=== PATIENT | male | born 1995 | race Caucasian/White ===

== ENCOUNTER 2018-05-21 12:54 | Emergency (ER) | payer OTHER ==
[2018-05-21] MEDS ORDERED: ALBUTEROL NEB 2.5 MG/3 ML INH STA (13:39)
[2018-05-21] MEDS ORDERED: DEXAMETHASONE 10 MG/ML VIAL PO STA (13:39)
--- NOTE | 2018-05-21 14:00 | ED Physician Documentation ---
PD HPI URI - Stated complaint Stated Complaint: COUGHING UP BLOOD,SINUS PRESSURE - Chief complaint Chief Complaint: Resp - History obtained from History obtained from: Patient - Additional information Additional information: 22-year-old male presents the emergency department with 1 week of nasal congestion, cough and wheezing which has progressively worsened. The patient denies dyspnea on exertion or chest pain. The patient denies fevers or chills. The patient does report coughing today with productive sputum and blood tinged with the sputum. The patient denies any recent travel outside the [place]. The patient denies smoking. Review of Systems Constitutional: reports: Fatigue. denies: Fever, Chills Eyes: denies: Discharge Ears: denies: Ear pain Nose: reports: Rhinorrhea / runny nose, Congestion Throat: denies: Sore throat Cardiac: denies: Chest pain / pressure, Palpitations Respiratory: reports: Cough, Hemoptysis GI: denies: Abdominal Pain : denies: Dysuria Skin: denies: Rash Musculoskeletal: denies: Neck pain Neurologic: denies: Generalized weakness Immunocompromised: denies: Chemotherapy PD PAST MEDICAL HISTORY - Past Medical History Past Medical History: No - Past Surgical History Past Surgical History: No - Present Medications Home Medications: Ambulatory Orders Medication Instructions Recorded Confirmed Albuterol Sulf [Ventolin Hfa 1 - 2 puffs INH Q4HR PRN #1 inhaler 05/21/18 Inhaler] Dm/Acetaminophen/Doxylamine [Vicks 05/21/18 Nyquil Cold-Flu Liquid] - Allergies Allergies/Adverse Reactions: Allergies Allergy/AdvReac Type Severity Reaction Status Date / Time No Known Drug Allergies Allergy Verified 05/21/18 13:11 - Social History Does the pt smoke?: No Smoking Status: Never smoker Does the pt drink ETOH?: No Does the pt have substance abuse?: No - Immunizations Immunizations are current?: Yes - POLST Patient has POLST: No PD ED PE NORMAL - General General: Alert and oriented X 3, No acute distress - HEENT HEENT: Atraumatic, PERRL, EOMI, Ears normal - Neck Neck: No JVD - Cardiac Cardiac: RRR, Strong equal pulses - Respiratory Respiratory: No respiratory distress, Clear bilaterally, Other (Bilateral wheezing) - Abdomen Abdomen: Soft, Non tender - Derm Derm: Normal color - Extremities Extremities: No deformity - Neuro Neuro: Alert and oriented X 3, aws consultant 2-12 intact, Normal speech - Psych Psych: Normal mood Results - Vitals Vitals: Vital Signs - 24 hr 05/21/18 05/21/18 13:07 13:54 Temperature 36.2 C L Heart Rate 65 70 Respiratory 16 14 Rate Blood Pressure 138/76 H O2 Saturation 98 Oxygen O2 Source Room air PD MEDICAL DECISION MAKING - ED course ED course: On reevaluation the patient is resting comfortably and appears to be in no acute distress. The patient's chest x-ray shows no evidence of pneumonia. The patient's symptoms seem to represent a viral process and the hemoptysis is related to the acute viral bronchitis. The patient will be discharged home with a prescription for an albuterol inhaler and was given a dose of Decadron in the emergency department. Presently, the patient appears appropriate for discharge and ongoing outpatient management. I discussed warning signs and recommended returning to the emergency department for any worsening or any concerns. Departure - Departure Disposition: 01 Home, Self Care Clinical Impression: Viral bronchitis Condition: Good Instructions: ED Upper Resp Infec No Abx Tx Ch, ED Bronchitis Asthmatic Ch Follow-Up: MARIA EUGENIA Townsend [Provider Group] - Within 1 week Prescriptions: Albuterol Sulf [Ventolin Hfa Inhaler] 1 - 2 puffs INH Q4HR PRN #1 inhaler PRN Reason: Shortness Of Air/Wheezing Comments: Please return to the emergency department for worsening symptoms or any concerns
--- NOTE | 2018-05-21 14:53 | XRAY Report ---
Reason: cough Procedure Date: 05/21/2018 Accession Number: [id number] / [id number] Procedure: XR - Chest 2 View X-Ray CPT Code: 59680 FULL RESULT: EXAM: CHEST RADIOGRAPHY EXAM DATE: 05/21/2018 02:30 PM. CLINICAL HISTORY: Cough for 1 week. COMPARISON: None. TECHNIQUE: 2 views. FINDINGS: Lungs/Pleura: No focal opacities evident. No pleural effusion. No pneumothorax. Normal volumes. Mediastinum: Heart and mediastinal contours are unremarkable. Other: None. IMPRESSION: Normal 2-view chest radiography. [facility]
[2018-05-21 15:30] VITALS: BP 128/74
== END 2018-05-21 15:30 | disposition home or self-care (01) ==
LOC: ED 12:54
DX: J20.8 Acute bronchitis due to other specified organisms (principal)
CPT/HCPCS: 71046; 94640; 94664; 99283